=== PATIENT | female | born 1985 | race Hispanic/Latino ===

== ENCOUNTER 2019-10-29 10:07 | Emergency (ER) | payer OTHER ==
[2019-10-29] MEDS ORDERED: LORazepam 1 MG TAB PO ONE (10:37)
[2019-10-29] MEDS ORDERED: SODIUM CHLORIDE 0.9% 1000 ML 1,000 ML IV ONE (10:37)
[2019-10-29] MEDS ORDERED: THIAMINE 100 MG, FOLIC ACID 1 MG, MULTIPLE VITAMIN INJ, ADULT 10 ML in SODIUM CHLORIDE ... IV ONE (10:38)
[2019-10-29] MEDS ORDERED: LORazepam 2 MG/ML VIAL IV PRN ×3 (10:39)
--- NOTE | 2019-10-29 10:44 | Emergency Department Report ---
ED Seizure HPI - General Stated Complaint: SEIZURE/ALCOHOL DETOX Time Seen by Provider: 10/29/19 10:34 - History of Present Illness Initial Comments: Patient is a 34-year-old female with history of alcohol abuse. Patient brought to the emergency room from [facility] after patient was taking yesterday for alcohol detoxification. Patient brought in for 2 episode of generalized tonic-clonic seizure. Patient stated that last drink was yesterday. Patient stated that she used to drink every day. Patient received Versed by EMS that aborted her seizures. In the emergency room patient is alert, oriented 3 and able to answer all questions appropriately. Patient denied any history of drug abuse. She reported history of alcohol detox before. MD Complaint: seizure -: Sudden, This morning Description of Episode: loss of consciousness, tonic-clonic movement, post-event confusion Witnessed:: Yes Trauma: No Seizure History: none Place: other (alcohol detox facility) Possible Precipitating Event: alcohol withdrawal Associated Symptoms: denies other symptoms Treatments Prior to Arrival: benzodiazepines - Related Data Allergies Allergy/AdvReac Type Severity Reaction Status Date / Time No Known Allergies Allergy Unverified 10/29/19 10:53 ED Review of Systems ROS: Stated complaint: SEIZURE/ALCOHOL DETOX Other details as noted in HPI Comment: All other systems reviewed and negative Constitutional: denies: chills, fever Respiratory: denies: cough, shortness of breath, SOB with exertion, wheezing Cardiovascular: denies: chest pain, palpitations Gastrointestinal: denies: abdominal pain, nausea, vomiting, diarrhea, constipation, hematemesis, melena, hematochezia Musculoskeletal: denies: back pain Neurological: denies: headache, weakness, numbness, paresthesias, confusion ED Physical Exam - General General appearance: alert, in no apparent distress - Head Head exam: Present: atraumatic, normocephalic, normal inspection - Eye Eye exam: Present: normal appearance, PERRL - ENT ENT exam: Present: normal exam, normal orophraynx, mucous membranes moist - Neck Neck exam: Present: normal inspection, full ROM. Absent: tenderness, meningismus, lymphadenopathy, thyromegaly - Respiratory Respiratory exam: Present: normal lung sounds bilaterally - Cardiovascular Cardiovascular Exam: Present: regular rate, normal rhythm, normal heart sounds - GI/Abdominal GI/Abdominal exam: Present: soft, normal bowel sounds. Absent: distended, tenderness, guarding, rebound, rigid, organomegaly, mass, bruit, pulsatile mass, hernia - Extremities Exam Extremities exam: Present: normal inspection, full ROM, normal capillary refill. Absent: tenderness, pedal edema, joint swelling, calf tenderness - Back Exam Back exam: Present: normal inspection, full ROM. Absent: CVA tenderness (R), CVA tenderness (L), muscle spasm, paraspinal tenderness, vertebral tenderness - Neurological Exam Neurological exam: Present: alert, oriented X3, CN II-XII intact, normal gait, reflexes normal - Psychiatric Psychiatric exam: Present: normal mood - Skin Skin exam: Present: warm, intact, normal color ED Course Vital Signs 10/29/19 10/29/19 10:30 14:13 Temperature 97.9 F Pulse Rate 112 H 109 H Respiratory 15 14 Rate Blood Pressure 119/80 127/89 [Left] O2 Sat by Pulse 100 98 Oximetry ED Medical Decision Making - Lab Data Result diagrams: 10/29/19 10:44 10/29/19 10:44 - Medical Decision Making Patient is a 34-year-old female with history of alcohol abuse. Patient brought to the emergency room from [facility] after patient was taking yesterday for alcohol detoxification. Patient brought in for 2 episode of generalized tonic-clonic seizure. Patient stated that last drink was yesterday. Patient stated that she used to drink every day. Patient received Versed by EMS that aborted her seizures. In the emergency room patient is alert, oriented 3 and able to answer all questions appropriately. Patient denied any history of drug abuse. She reported history of alcohol detox before Patient labs reviewed and is unremarkable. Patient showed no seizure activity in the emergency room. Patient observed for 5 hours. I discussed the patient with nurse at [facility] Ms Herndon and she advised that patient can be returned back to finish her detox. Critical care attestation.: If time is entered above; I have spent that time in minutes in the direct care of this critically ill patient, excluding procedure time. ED Disposition Clinical Impression: Alcohol withdrawal seizure Disposition: DC-01 TO HOME OR SELFCARE Is pt being admited?: No Condition: Stable Instructions: Non-epileptic Seizures (ED), Alcohol Withdrawal (ED) Referrals: PRIMARY CARE, [Primary Care Provider] - 3-5 Days
[2019-10-29 11:57] LABS: Basophils % (Auto) 0.9 % (0.0-1.8); Eosinophils % (Auto) 0.7 % (0.0-4.3); Hematocrit 38.8 % (30.3-42.9); Hemoglobin 13.6 gm/dl (10.1-14.3); Lymphocytes # (Auto) 1.3 K/mm3 (1.2-5.4); Lymphocytes % (Auto) 26.7 % (13.4-35.0); Mean Corpuscular HGB Conc 35 % (30-34); Mean Corpuscular Volume 91 fl (79-97); Monocytes # (Auto) 0.3 K/mm3 (0.0-0.8); Monocytes % (Auto) 5.8 % (0.0-7.3); Platelet Count 290 K/mm3 (140-440); Red Blood Count 4.26 M/mm3 (3.65-5.03); Red Cell Distribution Width 12.4 % (13.2-15.2)
[2019-10-29 12:27] LABS: Alanine Aminotransferase 32 units/L (7-56); Albumin 4.1 g/dL (3.9-5); BUN/Creatinine Ratio 20; Blood Urea Nitrogen 14 mg/dL (7-17); Calcium 8.7 mg/dL (8.4-10.2); Hemolysis Index 7
[2019-10-29 15:51] LABS: Bilirubin,Urine NEG (Negative); Blood,Urine SM (Negative); Color,Urine Yellow (Yellow); Mucus,Urine FEW /HPF; Protein,Urine <15 mg/dL mg/dL (Negative); Urobilinogen,Urine < 2.0 mg/dL (<2.0); WBC,Urine < 1.0 /HPF (0.0-6.0)
[2019-10-29 15:55] LABS: Amphetamine Screen,Urine PRESUMPTIVE NEGATIVE; Benzodiazepines Screen,Urine PRESUMPTIVE NEGATIVE; Cannabinoid Screen,Urine PRESUMPTIVE NEGATIVE; Cocaine Screen,Urine PRESUMPTIVE NEGATIVE; Methadone Screen,Urine PRESUMPTIVE NEGATIVE; Opiate Screen,Urine PRESUMPTIVE NEGATIVE
[2019-10-29 16:03] VITALS: BP 127/75
== END 2019-10-29 16:42 | disposition home or self-care (01) ==
LOC: ED 10:07
DX: F10.231 Alcohol dependence with withdrawal delirium (principal)
CPT/HCPCS: 36415; 80053; 80307; 81001; 83735; 84703; 85025; 96365; 96366; 99284; J3411; J7030; 80320; G0480